=== PATIENT | male | born 1950 | race African-American/Black ===

== ENCOUNTER 2016-05-12 08:52 | Emergency (ER) | payer BC ==
[2016-05-12] MEDS ORDERED: OPTIRAY 350 100 ML VIAL HMH IV ONE (08:53)
[2016-05-12] MEDS ORDERED: ONDANSETRON 4 MG VIAL ONE (09:43)
[2016-05-12] MEDS ORDERED: SODIUM CHLORIDE 0.9% 1,000 ML ONE ×2 (09:43→10:26)
== END 2016-05-12 13:25 | disposition home or self-care (01) ==
LOC: ER 08:52
DX: R10.13 Epigastric pain (principal); R10.33 Periumbilical pain; K80.44 Calculus of bile duct with chronic cholecystitis without obstruction; K74.60 Unspecified cirrhosis of liver; K73.9 Chronic hepatitis, unspecified; R18.8 Other ascites; K76.6 Portal hypertension; R59.9 Enlarged lymph nodes, unspecified; E27.8 Other specified disorders of adrenal gland
CPT/HCPCS: 36415; 74177; 80053; 81001; 82553; 83690; 84484; 85025; 93005; 96361; 96374